=== PATIENT | male | born 1980 | race Caucasian/White ===

== ENCOUNTER 2017-11-30 13:01 | Emergency (ER) | payer MEDICAID ==
[2017-11-30 14:59] LABS: URINE PH (Dip) POC 6.5 (5.0-8.5)
[2017-11-30 14:59] LABS: URINE BLOOD (Dip) POC Negative (NEGATIVE); URINE GLUCOSE (Dip) POC Negative (NEGATIVE); URINE KETONES (Dip) POC Negative (NEGATIVE); URINE LEUKOCYTE EST (Dip) POC Negative (NEGATIVE); URINE NITRITE (Dip) POC Negative (NEGATIVE); URINE TOTAL PROTEIN POC Negative (NEGATIVE)
[2017-11-30] MEDS: predniSONE 20 MG TAB PO (15:13)
[2017-11-30] MEDS: KETOROLAC 30 MG INJ IM (15:15)
[2017-11-30] MEDS: HYDROCODONE/APAP (10/325) TAB PO (16:38)
== END 2017-11-30 16:48 | disposition home or self-care (01) ==
LOC: FTE 13:01
DX: M54.42 Lumbago with sciatica, left side (principal)
CPT/HCPCS: 72131; 81003; 96372; 99285-25

== ENCOUNTER 2018-02-15 19:47 | Emergency (ER) | payer SELFPAY, MEDICAID ==
[2018-02-15] MEDS: HYDROCODONE/APAP (10/325) TAB PO (22:40)
[2018-02-15] MEDS: KETOROLAC 60 MG INJ IM (22:40)
[2018-02-15 22:55] LABS: ADD UMIC NO; UR ASCORBIC ACID NEGATIVE (NEGATIVE); UR BILIRUBIN (Dip) NEGATIVE (NEGATIVE); UR BLOOD (Dip) NEGATIVE (NEGATIVE); UR CLARITY CLEAR (CLEAR); UR COLOR YELLOW (YELLOW); UR GLUCOSE (Dip) NEGATIVE (NEGATIVE); UR KETONES (Dip) NEGATIVE (NEGATIVE); UR LEUKOCYTE ESTERASE (Dip) NEGATIVE Leu/ul (NEGATIVE); UR NITRITE (Dip) NEGATIVE (NEGATIVE); UR SPECIFIC GRAVITY (Dip) 1.017 (1.003-1.030); UR TOTAL PROTEIN (Dip) NEGATIVE (NEGATIVE); UR UROBILINOGEN (Dip) NEGATIVE (NEGATIVE)
== END 2018-02-16 00:35 | disposition home or self-care (01) ==
LOC: FTE 02-16 00:35
DX: N50.812 Left testicular pain (principal); F17.210 Nicotine dependence, cigarettes, uncomplicated
CPT/HCPCS: 76870; 81003; 96372; 99285-25